=== PATIENT | male | born 1995 | race Caucasian/White ===

== ENCOUNTER 2020-03-08 13:57 | Emergency (ER) | payer OTHER, SELFPAY ==
--- NOTE | ~2020-03-08 | XR_ITS ---
EXAMINATION: XR foot LT min 3V EXAM DATE: 03/08/2020 14:23 INDICATION: Initial encounter following injury, with pain of the left foot. TECHNIQUE: Left foot dorsoplantar, lateral and oblique projections obtained and reviewed. There is n o prior study for comparison. FINDINGS: Left metatarsal bones unremarkable. There is acute nondisplaced fracture of the left fif th proximal phalanx. Closed, posttraumatic finding, indicated on exam. There is overlying soft tissue swelling. IMPRESSION: Acute left fifth proximal phalangeal shaft fracture. Reviewed, dictated and finalized at location A.
[2020-03-08 13:59] VITALS: BP 110/68; PULSE 101; RESP 20; TEMP 36.9; O2SAT 99
[2020-03-08 16:14] VITALS: BP 120/80; PULSE 80; RESP 20; TEMP 36.7; O2SAT 99
--- NOTE | 2020-03-08 17:38 | ED.GENADULT ---
HPI - General Adult General Chief complaint: Extremity Injury, Lower Stated complaint: left foot injury Time Seen by Provider: 03/08/20 14:48 Source: patient Limitations: no limitations History of Present Illness HPI narrative: Patient presents for evaluation of pain in the left foot for the last 3 days. He indicates he stubbed his foot against a vacuum equipment or machinery cleaner. He now reports 8 out of 10 pain in the fifth digit of the left foot. Pain is worse with weightbearing and movement. He denies any paresthesias. He is taking ibuprofen 800 mg with minimal improvement in his symptoms thereafter. No additional complaints or concerns. Related Data Allergies Allergy/AdvReac Type Severity Reaction Status Date / Time No Known Allergies Allergy Verified 03/08/20 14:01 Review of Systems Review of Systems: Narrative: CONSTITUTIONAL: Denies fever, chills, or sweats. EYES: Denies visual changes, redness, or discharge. ENT: Denies rhinorrhea, congestion, sore throat, or otalgia. CARDIOVASCULAR: Denies chest pain, palpitations, or edema. RESPIRATORY: Denies cough or dyspnea. GASTROINTESTINAL: Denies abdominal pain, nausea, vomiting, or diarrhea. GENITOURINARY: Denies dysuria or hematuria. SKIN: Denies rash or itching. MUSCULOSKELETAL: Denies back pain. Reports pain in fifth digit of left foot NEUROLOGIC: Denies headache, numbness, dizziness, or weakness. PSYCHIATRIC: Denies anxiety or depression. [facility] Past Medical History Medical History No significant past medical history Surgical History Surgical History No significant past surgical history Social History Social History (Updated 03/08/20 @ 17:41 by Nathaniel Maynard, [facility], ) Smoking status: Never smoker Substance use: never Living arrangements: with family Exam Narrative: Exam Narrative: GENERAL: Well-appearing, well-nourished, and in no acute distress. HEAD: Normocephalic, atraumatic. EYES: PERRLA and EOMI. ENT: Nares clear, no rhinorrhea or epistaxis. Mucous membranes moist. Oropharynx without tonsillar hypertrophy exudate or other lesions. Bilateral TMs pearly mcnair nonbulging NECK: Supple. No adenopathy or masses. No carotid bruits or JVD CHEST: Clear to auscultation. No respiratory distress. No wheezes rales or rhonchi HEART: Regular rate and rhythm. No murmur heard. Normal peripheral pulses. ABDOMEN: Soft, nontender, nondistended, normal active bowel sounds. EXTREMITIES: Normal range of motion. No edema. Tenderness over proximal phalanx of fifth digit of left foot SKIN: Warm, dry, no rash. Ecchymosis to dorsal aspect of distal left foot overlying 4th and 5th metatarsals NEURO: No focal deficits. Alert and oriented x3. PSYCH: Normal mood and affect. Course Course Emergency Course: X-ray with evidence of fracture of proximal phalanx of fifth digit of left foot. Provided with postop shoe and crutches. Advised follow-up with podiatry. Vital Signs Vital signs: Vital Signs Temperature 36.9 C 03/08/20 13:59 Pulse Rate 101 H 03/08/20 13:59 Respiratory Rate 03/08/20 13:59 Blood Pressure 110/68 03/08/20 13:59 Pulse Oximetry 99 03/08/20 13:59 Temperature 36.7 C 03/08/20 16:14 Pulse Rate 80 03/08/20 16:14 Respiratory Rate 03/08/20 16:14 Blood Pressure 120/80 03/08/20 16:14 Pulse Oximetry 99 03/08/20 16:14 Medical Decision Making Differential Diagnosis Differential Diagnosis: Fracture versus sprain versus strain versus contusion Vital Signs Vital Signs: Vital Signs Temperature 36.9 C 03/08/20 13:59 Pulse Rate 101 H 03/08/20 13:59 Respiratory Rate 03/08/20 13:59 Blood Pressure 110/68 03/08/20 13:59 Pulse Oximetry 99 03/08/20 13:59 Temperature 36.7 C 03/08/20 16:14 Pulse Rate 80 03/08/20 16:14 Respiratory Rate 03/08/20 16:14 Blood Pressure 120/80 03/08/20 16:1
== END 2020-03-08 16:16 | disposition home or self-care (01) ==
PROVIDERS: Emergency Provider Nurse Practitioner
DX: S92.515A Nondisplaced fracture of proximal phalanx of left lesser toe(s), initial encounter for closed fracture (principal); W22.8XXA Striking against or struck by other objects, initial encounter
CPT/HCPCS: 73630; 99284